=== PATIENT | male | born 1990 | race Caucasian/White ===

== ENCOUNTER 2024-08-17 19:52 | Emergency (ER) | payer OTHER, SELFPAY ==
[2024-08-17 19:53] VITALS: BP 133/89
[2024-08-17 21:22] VITALS: BMI 28.7
[2024-08-17 21:42] LABS: % Basophils 0.5 % (0-2); % Eosinophils 0.3 % (0-6); % Immature Granulocytes 0.5 % (0-0.5); % Lymphocytes 12.4 % (20.5-51.1); % Monocytes 10.3 % (1.7-9.3); Absolute Basophils 0.1 10^3/uL (0-0.2); Absolute Eosinophils 0.1 10^3/uL (0-0.7); Absolute Immature Granulocytes 0.1 10^3/uL (0-0.05); Absolute Lymphocytes 2.2 10^3/uL (1.2-3.4); Absolute Monocytes 1.8 10^3/uL (0.1-0.6); Absolute Neutrophils 13.2 10^3/uL (1.4-6.5); Hematocrit 44.4 % (39.0-52.0); Hemoglobin 16.2 g/dL (13.0-18.0); Mean Corp Hgb Conc. 36.5 g/dL (33.0-37.0); Mean Corpuscular Hgb 28.8 pg (27.0-31.0); Mean Platelet Volume 9.2 fL (7.4-10.4); Nucleated Red Blood Cells % 0 % (-); Platelet Count 327 10^3/uL (130-400); Red Blood Cell Count 5.62 10^6/uL (4.70-6.10); Red Cell Dist. Width 11.9 % (11.5-14.5); White Blood Cell Count 17.4 10^3/uL (4.8-10.8)
[2024-08-17 21:55] LABS: ALT (SGPT) 21 U/L (0-50); AST (SGOT) 22 U/L (17-59); Albumin 4.6 g/dl (3.5-5.0); Alkaline Phosphatase 79 U/L (38-126); Blood Urea Nitrogen 14 mg/dl (9-20); Calcium 9.4 mg/dl (8.4-10.2); Carbon Dioxide 22 mmol/L (22-30); Chloride 89 mmol/L (98-107); Estimated Creatinine Clearance 97 ml/min; Glucose 105 mg/dl (70-99); Lipase 90 U/L (23-300); Potassium 3.4 mmol/L (3.5-5.1); Sodium 130 mmol/L (135-145); Total Bilirubin 0.8 mg/dl (0.2-1.3); Total Protein 7.5 g/dl (6.3-8.2); eGFR > 60.00
[2024-08-17] MEDS: PEPCID 20 MG IV (22:13)
[2024-08-17] MEDS: ZOFRAN 4 MG IV (22:13)
[2024-08-17] MEDS: NSS 1000 IV (22:13)
[2024-08-17 22:22] VITALS: BP 125/68
--- NOTE | 2024-08-17 22:25 | ED.GENMED ---
History of Present Illness
General
Chief Complaint: Abdominal Symptoms
Source: patient and family
Exam Limitations: none
Time Seen by Provider: 08/17/24 21:21
Nursing documentation reviewed up to this point in time: agreed with
History of Present Illness
History of Present Illness:
34-year-old male past medical history of previous substance abuse presenting to the emergency department today with concerns of initial diarrhea last week now progressive to appetite nausea and vomiting over the past few days. He also claims to
have some vague abdominal discomfort denies any specific sharp pain. Denies any fevers.
Past History
Past History
ED Past Medical History: Other (Substance abuse)
ED Past Surgical History: None
Social History
Tobacco: Smoker
Review of Systems
Review of Systems
Allergies reviewed?: Yes
All Other Systems: ROS reviewed and negative except as documented in HPI and ROS
Phy Exam
Physical Exam
Physical Exam:
GENERAL: Alert , in no apparent distress
EYE: pupils equal and reactive
NECK: Supple, no significant adenopathy.
ENT: o/p clr, mmm.
CARDIAC: Regular rate and rhythm .
LUNGS: Clear breath sounds bilaterally, no acute respiratory distress, no wheezes/rales/rhonchi
ABDOMEN: Soft, without focal tenderness, no r/g, no cvat
NEUROLOGICAL: Alert and oriented, no focal neuro deficits
SKIN: Warm and dry, skin intact.
MUSCULOSKELETAL: No edema, well perfused.
PSYCH: Normal and appropriate interaction.
Course
Orders/Labs/Results
Orders:
Orders
08/17/24 21:32
Add On- LAB Urgent
Tests Added?: lipase
Electrocardiogram (*1) Urgent
Reason for Study: Abdominal Pain
08/17/24 21:33
EKG- Treatment ONCE
08/17/24 21:34
Complete Blood Count/With Diff Urgent
Comprehensive Metabolic Panel Urgent
Lipase Urgent
08/17/24 21:50
0.9% Sodium Chloride 1000 ml [Nss] 1,000 ml IV BOLUS
Famotidine [Pepcid] 20 mg IV NOW STA
Ondansetron Injectable [Zofran] 4 mg IV NOW STA
08/17/24 22:25
STOOL [C difficile Antigen & Toxins] Urgent
DEMETRIO Source: Feces/Stool
Specimen Description:
Stool Culture Urgent
DEMETRIO Source: Feces/Stool
Specimen Description:
08/17/24 22:47
STOOL [C difficile Antigen & Toxins] Stat
DEMETRIO Source: Feces/Stool
Specimen Description:
Date Specimen was Collected: 08/17/24
Time Specimen was Collected: 22:45
Stool Culture Stat
DEMETRIO Source: Feces/Stool
Specimen Description:
Date Specimen was Collected: 08/17/24
Time Specimen was Collected: 22:45
Abnormal Lab Results
08/17/24
21:34
WBC 17.4 H 10^3/uL
(4.8-10.8)
MCV 79.0 L fL
(80.0-94.0)
Abs Immat Gran (auto) 0.1 H 10^3/uL
(0-0.05)
Absolute Neuts (auto) 13.2 H 10^3/uL
(1.4-6.5)
Absolute Monos (auto) 1.8 H 10^3/uL
(0.1-0.6)
Neutrophils % 76.0 H %
(42.2-75.2)
Lymphocytes % 12.4 L %
(20.5-51.1)
Monocytes % 10.3 H %
(1.7-9.3)
Sodium 130 L mmol/L
(135-145)
Potassium 3.4 L mmol/L
(3.5-5.1)
Chloride 89 L mmol/L
(98-107)
Glucose 105 H mg/dl
(70-99)
08/17/24 21:34
08/17/24 21:34
Vital Signs
Initial and Last Documented VS:
Initial Vital Signs
Temp Pulse Resp BP Pulse Ox
97.6 F 97 18 133/89 100
08/17/24 19:53 08/17/24 19:53 08/17/24 19:53 08/17/24 19:53 08/17/24 19:53
Last Documented Vital Signs
Temp Pulse Resp BP Pulse Ox
97.6 F 97 18 125/68 98
08/17/24 19:53 08/17/24 19:53 08/17/24 19:53 08/17/24 22:22 08/17/24 22:30
MDM/Problems Addressed
MDM/Problems Addressed:
34-year-old male presenting to the emergency department today with concerns of initial diarrhea last week somewhat improved now ongoing nausea and some intermittent vomiting and decreased appetite. Has some vague abdominal pain but no reproducible
discomfort to palpation of the abdomen. Normal vital signs on arrival patient does have a white count of 17.4 other labs showing slightly low sodium level and potassium. Patient was given a liter of fluid as well as Zofran with significant
improvement of symptoms. He otherwise is stable for discharge at this time no significant abdominal pain to palpation. Return precautions were given.
*Critical Care Note
Total Time (30-74mins, 75-104mins- exclusive of procedures): Not Applicable
ED Attending Note
-
Portions of this chart may have been created with voice recognition software.� Occasional wrong word or��sound alike� substitutions may have occurred due to the inherent limitations of voice recognition software.
Discharge Plan
Departure
Patient Disposition: Home (Routine Discharge)
Date of Disposition: 08/17/24
Time of Disposition: 23:38
Patient with high blood pressure during this ER visit?: No
Condition: Good
Covid-19: Not Applicable
Discharge Problem:
Combined abdominal pain, vomiting, and diarrhea, Acute hyponatremia
Instructions: Diarrhea in teens and adults
Prescriptions:
New
ondansetron 4 mg tablet,disintegrating
4 mg PO Q6H PRN (Reason: nausea and vomiting) Qty: 7 0RF
famotidine 20 mg tablet
20 mg PO BID 4 Days Qty: 8 0RF
Referrals:
Sakshi Patel PA [Family Provider] -
Activity Restrictions/Additional Instructions:
You came to the emergency department today with concerns of nausea vomiting diarrhea. Here you were given Zofran with improvement of symptoms. Please take the medications ongoing over the next few days as symptoms are mildly improved. Return to
the emergency department for any worsening, new or concerning symptoms.
Interventions
Interventions:
*Risk Screen - Suicide Last Done: 08/17/24 19:53
*General Assessment Last Done: 08/17/24 19:53
*Neglect/Abuse Screening Last Done: 08/17/24 19:53
ED- Fall Risk Assessment Last Done: 08/17/24 22:11
*ED COVID-19 Vaccine History Last Done: 08/17/24 21:23
DI-Deytzc-Glpfdlwkgl Assessment Last Done: 08/17/24 22:11
Discharge Date and Time
Print Language: MAURITANIAN
[2024-08-17 23:00] VITALS: BP 127/69
[2024-08-17 23:46] VITALS: BP 127/69
== END 2024-08-17 23:48 | disposition home or self-care (01) ==
LOC: EMR 19:52
PROVIDERS: EMERGENCY PHYSICIAN Emergency Medicine; FAMILY PHYSICIAN Physician Assistant Medical
DX: R10.9 Unspecified abdominal pain (principal); R11.2 Nausea with vomiting, unspecified; R19.7 Diarrhea, unspecified; E87.1 Hypo-osmolality and hyponatremia; F17.200 Nicotine dependence, unspecified, uncomplicated
CPT/HCPCS: 99283; 96374; 96375; 96361; 80053; 83690; 85025; 87045; 87046; 87324; 87427; 87449; 93005

== ENCOUNTER → 2024-08-26 11:02 | Outpatient (REF) | payer OTHER, SELFPAY | LOC: HWRAD 11:02 | PROVIDERS: ATTENDING PHYSICIAN Physician Assistant Medical | DX: R11.10 Vomiting, unspecified (principal); R19.7 Diarrhea, unspecified | CPT/HCPCS: 74177; Q9967 ==